=== PATIENT | female | born 1955 | race Caucasian/White ===

== ENCOUNTER 2022-02-04 08:42 | Inpatient (IN) | payer BC ==
[2022-02-04 09:52] LABS: #Basophils 0.1 thou/uL (0.0-0.2); #Eosinphils 0.2 thou/uL (0.0-0.7); #Lymphocytes 1.3 thou/uL (1.20-3.40); #Monocytes 0.4 thou/uL (0.11-0.59); %Eosinophils 3.9 % (0.0-10.0); %Lymphocytes 21.3 % (21.0-51.0); %Monocytes 7.3 % (0.0-10.0); %Neutrophils 66.5 % (42.0-75.0); Hemoglobin 13.9 g/dL (12.0-16.0); Mean Corpuscular HGB CONC 32.2 g/dL (32.0-36.0); Mean Corpuscular Hemoglobin 32.4 pg (27.0-31.0); Mean Platelet Volume 6.8 fL (7.4-10.4); Platelet Count 492 thou/uL (130-400); RBC Distribution Width 13.2 % (11.5-14.5); Red Blood Cell (RBC) Count 4.29 mill/uL (4.20-5.40)
[2022-02-04 10:06] LABS: ALT (SGPT) 14 U/L (8-55); AST (SGOT) 35 U/L (5-34); Albumin 3.3 g/dL (3.4-4.8); Alkaline Phosphatase 186 U/L (40-110); Anion Gap 16 mmol/L (10-20); BUN (Urea Nitrogen) 9 mg/dL (9.8-20.1); Bilirubin, Total 0.3 mg/dL (0.2-1.2); Calc. Creatinine Clearance 0 mL/min (70-130); Calcium 9.4 mg/dL (7.8-10.44); Carbon Dioxide 23 mmol/L (23-31); Chloride 98 mmol/L (98-107); Globulin 4.2 g/dL (2.4-3.5); Glucose 71 mg/dL (80-115); Magnesium 1.9 mg/dL (1.6-2.6); Potassium 3.7 mmol/L (3.5-5.1); Protein, Total 7.5 g/dL (5.8-8.1); Sodium 133 mmol/L (136-145)
[2022-02-04 11:48] LABS: Bilirubin Negative (Negative); Blood, Urine Negative (Negative); Clarity Clear (Clear); Glucose, Urine (Dipstick) Normal (Negative); Ketone, Urine Negative (Negative); Leukocyte Negative Leu/uL (Negative); Nitrite Negative (Negative); Protein, Urine (Dipstick) Negative (Neg-Trace); Specific Gravity, Urine 1.025 (1.002-1.036); Urobilinogen Normal mg/dL (Less than 2); pH, Urine 5.5 (5.0-9.0)
[2022-02-04 12:48] LABS: SARS-CoV-2 NAA Rapid Test Not Detected (NotDetected)
[2022-02-04 13:19] LABS: INR-International Normal Ratio 1.1; PTT 50.1 sec (22.9-36.1); Prothrombin Time 14.6 sec (12.0-14.7)
[2022-02-04 14:47] LABS: Troponin I Less than 0.010 ng/mL (< 0.028)
[2022-02-04] MEDS ORDERED: Ondansetron PF 4 MG/2 ML Vial IVP PRN (15:40)
[2022-02-04] MEDS ORDERED: Acetaminophen 325 MG TAB PO PRN (15:40)
[2022-02-04] MEDS ORDERED: Acetaminophen 650 MG Suppository PR PRN (15:40)
[2022-02-04] MEDS ORDERED: Ondansetron ODT 4 MG TAB PO PRN (15:40)
[2022-02-04 17:14] VITALS: BMI 39.0
[2022-02-04 17:32] LABS: Troponin I Less than 0.010 ng/mL (< 0.028)
[2022-02-04 17:53] LABS: Fluid, pH - Pleural Fld Greater than 7.50 (7.60 - 7.66)
[2022-02-04 18:49] LABS: RBC Count-Automated (BF) 225 /cu.mm; WBC/Nucleated-Auto (BF) 5311 /cu.mm
[2022-02-04 18:58] LABS: Body Fluid Source Thoracentesis Fluid
[2022-02-04 18:59] LABS: BF Color Yellow; Clarity Hazy (Clear); Tube # EDTA
[2022-02-04 19:07] LABS: BF Segmented Neutrophils 26 %; Cell Count Non Hematic 14 %; Eosinophils 1 %; Lymphocytes 59 %
[2022-02-05 04:03] LABS: #Eosinphils 0.2 thou/uL (0.0-0.7); #Lymphocytes 1.3 thou/uL (1.20-3.40); #Monocytes 0.5 thou/uL (0.11-0.59); #Neutrophils 3.6 thou/uL (1.40-6.50); %Basophils 0.6 % (0.0-1.0); %Eosinophils 3.9 % (0.0-10.0); %Lymphocytes 22.4 % (21.0-51.0); %Monocytes 8.2 % (0.0-10.0); %Neutrophils 64.9 % (42.0-75.0); Hemoglobin 13.1 g/dL (12.0-16.0); Mean Corpuscular HGB CONC 31.8 g/dL (32.0-36.0); Mean Corpuscular Hemoglobin 32.2 pg (27.0-31.0); Mean Platelet Volume 6.7 fL (7.4-10.4); Platelet Count 479 thou/uL (130-400); RBC Distribution Width 13.4 % (11.5-14.5); Red Blood Cell (RBC) Count 4.06 mill/uL (4.20-5.40); White Blood Cell (WBC) Count 5.6 thou/uL (4.8-10.8)
[2022-02-05 04:19] LABS: ALT (SGPT) 12 U/L (8-55); AST (SGOT) 29 U/L (5-34); Albumin 2.7 g/dL (3.4-4.8); Alkaline Phosphatase 146 U/L (40-110); Anion Gap 15 mmol/L (10-20); BUN (Urea Nitrogen) 7 mg/dL (9.8-20.1); Bilirubin, Total 0.4 mg/dL (0.2-1.2); Calc. Creatinine Clearance 104 mL/min (70-130); Calcium 8.3 mg/dL (7.8-10.44); Carbon Dioxide 22 mmol/L (23-31); Chloride 99 mmol/L (98-107); Globulin 3.4 g/dL (2.4-3.5); Glucose 73 mg/dL (80-115); Potassium 3.4 mmol/L (3.5-5.1); Protein, Total 6.1 g/dL (5.8-8.1); Sodium 133 mmol/L (136-145)
[2022-02-05 16:07] VITALS: BP 113/69; TEMP 98.4
== END 2022-02-05 16:37 | disposition home or self-care (01) | DRG 181 ==
LOC: ERS 08:42 → 2NO 12:46
PROVIDERS: ADMIT Internal Medicine; ATTEND Internal Medicine
PROC: 0W9B3ZZ Drainage of Left Pleural Cavity, Percutaneous Approach (ICD-10-PCS; principal; 2022-02-04)
DX: C34.02 Malignant neoplasm of left main bronchus (principal); J91.0 Malignant pleural effusion; Z20.822 Contact with and (suspected) exposure to COVID-19; I10 Essential (primary) hypertension; F17.210 Nicotine dependence, cigarettes, uncomplicated; K76.0 Fatty (change of) liver, not elsewhere classified; K80.20 Calculus of gallbladder without cholecystitis without obstruction; Z79.899 Other long term (current) drug therapy; Z90.710 Acquired absence of both cervix and uterus; Z90.09 Acquired absence of other part of head and neck
CPT/HCPCS: 0240U; 36415; 71045; 71260; 74177; 80053; 81003; 82150; 82945; 83615; 83735; 83880; 83986; 84157; 84443; 84478; 84484; 85025; 85060; 85610; 85730; 87045; 87046; 87070; 87116; 87205; 87206; 87324; 87427; 87449; 88112; 88184; 88305; 89051; J1642

== ENCOUNTER 2022-03-14 11:59 | Inpatient (IN) | payer BC ==
[2022-03-14 13:32] LABS: Mean Corpuscular HGB CONC 33.3 g/dL (32.0-36.0); Mean Corpuscular Hemoglobin 32.3 pg (27.0-31.0); Mean Corpuscular Volume 97.1 fL (78.0-98.0); Mean Platelet Volume 9.9 fL (7.4-10.4); Platelet Count 10 thou/uL (130-400); RBC Distribution Width 14.1 % (11.5-14.5); Red Blood Cell (RBC) Count 3.09 mill/uL (4.20-5.40); White Blood Cell (WBC) Count 0.3 thou/uL (4.8-10.8)
[2022-03-14 13:36] LABS: Albumin 3.1 g/dL (3.4-4.8)
[2022-03-14 13:37] LABS: Calcium 7.8 mg/dL (7.8-10.44); Chloride 99 mmol/L (98-107); Potassium 4.2 mmol/L (3.5-5.1); Sodium 130 mmol/L (136-145)
[2022-03-14 13:38] LABS: Globulin 2.6 g/dL (2.4-3.5); Glucose 106 mg/dL (80-115); Protein, Total 5.7 g/dL (5.8-8.1)
[2022-03-14 13:39] LABS: Anion Gap 16 mmol/L (10-20); Carbon Dioxide 19 mmol/L (23-31)
[2022-03-14 13:40] LABS: Bilirubin, Total 0.8 mg/dL (0.2-1.2)
[2022-03-14 13:41] LABS: Alkaline Phosphatase 78 U/L (40-110); Calc. Creatinine Clearance 0 mL/min (70-130)
[2022-03-14 13:42] LABS: BUN (Urea Nitrogen) 14 mg/dL (9.8-20.1)
[2022-03-14 13:43] LABS: AST (SGOT) 24 U/L (5-34)
[2022-03-14 13:44] LABS: ALT (SGPT) 13 U/L (8-55)
[2022-03-14 13:48] LABS: MDiff Complete? YES; Platelet Morphology Comment Appears Decreased; Polychromasia SLIGHT = 2-3 cells (100X) (0-2/hpf)
[2022-03-14] MEDS ORDERED: Ondansetron PF 4 MG/2 ML Vial ONE ×2 (13:54→16:11)
[2022-03-14] MEDS ORDERED: Cefepime 2 GM VIAL ONE (13:54)
[2022-03-14 14:06] LABS: CKMB 0.2 ng/mL (0-6.6)
[2022-03-14] MEDS ORDERED: Iopamidol-370 76% 500 ML 1 ML ONE (14:40)
[2022-03-14] MEDS ORDERED: Vancomycin 1.5 GRAM/300 ML BAG 1.5 GM in Premix Bag 1 BAG IVPB SCH (15:00)
[2022-03-14] MEDS ORDERED: Metoprolol Tartrate 5 MG/5 ML VIAL ONE (15:23)
[2022-03-14] MEDS ORDERED: Bisacodyl 5 MG TAB PO PRN (15:35)
[2022-03-14] MEDS ORDERED: Senokot S 8.6-50 MG TAB PO PRN (15:35)
[2022-03-14] MEDS ORDERED: Acetaminophen 325 MG TAB PO PRN (15:35)
[2022-03-14] MEDS ORDERED: Acetaminophen 500 MG TAB ONE (16:26)
[2022-03-14] MEDS: Sodium Chloride 0.9% 1,000 ML IV SCH (18:00)
[2022-03-14 18:01] VITALS: BMI 36.8
[2022-03-14] MEDS ORDERED: Ondansetron PF 4 MG/2 ML Vial IVP PRN (18:12)
[2022-03-14 18:30] LABS: Mean Corpuscular HGB CONC 33.5 g/dL (32.0-36.0); Mean Corpuscular Hemoglobin 33.2 pg (27.0-31.0); Mean Corpuscular Volume 99.3 fL (78.0-98.0); Platelet Count 4 thou/uL (130-400); RBC Distribution Width 14.2 % (11.5-14.5); Red Blood Cell (RBC) Count 2.41 mill/uL (4.20-5.40); White Blood Cell (WBC) Count 0.1 thou/uL (4.8-10.8)
[2022-03-14] MEDS ORDERED: Norepinephrine 8 MG/0.9% NS 250 ML IVPB SCH (19:00)
[2022-03-14] MEDS ORDERED: VANCOMYCIN 1.25 GM/250 ML BAG 1.25 GM in Premix Bag 1 BAG IVPB SCH (21:00)
[2022-03-14] MEDS: Cefepime 2 GM in Sodium Chloride 0.9% 100 ML IVPB SCH (21:33)
[2022-03-14] MEDS: Famotidine/PF 20 mg/2ml Vial SLOW IVP SCH (21:34)
[2022-03-14 23:55] LABS: Bacteria/HPF None Seen HPF (None Seen); Bilirubin Negative (Negative); Blood, Urine Negative (Negative); Clarity Clear (Clear); Glucose, Urine (Dipstick) Normal (Negative); Ketone, Urine Negative (Negative); Leukocyte Negative Leu/uL (Negative); Nitrite Negative (Negative); Protein, Urine (Dipstick) Negative (Neg-Trace); RBC/HPF 0-3 HPF (0-3); Specific Gravity, Urine 1.017 (1.002-1.036); Squamous Epithelial 0-3 HPF (0-3); Urobilinogen Normal mg/dL (Less than 2); WBC/HPF 0-3 HPF (0-3); pH, Urine 5.5 (5.0-9.0)
[2022-03-15 00:13] LABS: Hemoglobin 7.4 g/dL (12.0-16.0); Mean Corpuscular HGB CONC 33.8 g/dL (32.0-36.0); Mean Corpuscular Volume 97.7 fL (78.0-98.0); Mean Platelet Volume 6.5 fL (7.4-10.4); Platelet Count 49 thou/uL (130-400); RBC Distribution Width 13.9 % (11.5-14.5); Red Blood Cell (RBC) Count 2.24 mill/uL (4.20-5.40); White Blood Cell (WBC) Count 0.1 thou/uL (4.8-10.8)
[2022-03-15 00:45] LABS: Legionella Urinary Ag Negative (Negative); Strep pneumo Urine Ag NEGATIVE (NEGATIVE)
[2022-03-15] MEDS: HYDROcodone/Acetaminophen 5/325 mg Tablet PO PRN ×3 (04:13→19:39)
[2022-03-15] MEDS: Sodium Chloride 0.9% 1,000 ML IV SCH ×2 (04:45→16:40)
[2022-03-15 04:46] LABS: Anion Gap 14 mmol/L (10-20); BUN (Urea Nitrogen) 15 mg/dL (9.8-20.1); Calc. Creatinine Clearance 103 mL/min (70-130); Carbon Dioxide 21 mmol/L (23-31); Chloride 106 mmol/L (98-107); Glucose 87 mg/dL (80-115); Potassium 3.7 mmol/L (3.5-5.1); Sodium 137 mmol/L (136-145)
[2022-03-15 05:00] LABS: Hemoglobin 7.3 g/dL (12.0-16.0); Mean Corpuscular HGB CONC 33.3 g/dL (32.0-36.0); Mean Corpuscular Hemoglobin 32.4 pg (27.0-31.0); Mean Corpuscular Volume 97.3 fL (78.0-98.0); Platelet Count 44 thou/uL (130-400); Red Blood Cell (RBC) Count 2.25 mill/uL (4.20-5.40); White Blood Cell (WBC) Count 0.1 thou/uL (4.8-10.8)
[2022-03-15] MEDS: Cefepime 2 GM in Sodium Chloride 0.9% 100 ML IVPB SCH ×3 (05:27→21:08)
[2022-03-15] MEDS: Levothyroxine Sodium 25 MCG TAB PO SCH (05:28)
[2022-03-15] MEDS: Vancomycin HCl 1.5 GM in Sodium Chloride 0.9% 250 ML 300 ML IVPB SCH ×2 (05:40→17:21)
[2022-03-15] MEDS: Famotidine/PF 20 mg/2ml Vial SLOW IVP SCH ×2 (09:07→20:02)
[2022-03-15 12:27] LABS: SARS-CoV-2 PCR by NAA Not Detected (NotDetected)
[2022-03-15 13:00] LABS: Mean Corpuscular HGB CONC 33.2 g/dL (32.0-36.0); Mean Corpuscular Hemoglobin 32.4 pg (27.0-31.0); Mean Corpuscular Volume 97.5 fL (78.0-98.0); Mean Platelet Volume 7.2 fL (7.4-10.4); Platelet Count 29 thou/uL (130-400); Red Blood Cell (RBC) Count 2.15 mill/uL (4.20-5.40); White Blood Cell (WBC) Count 0.2 thou/uL (4.8-10.8)
[2022-03-15] MEDS: TBO-Filgrastim 300 MCG/0.5 ML VIAL SC SCH (16:54)
[2022-03-15] MEDS: metroNIDAZOLE 500 MG in Premix Bag 1 BAG IVPB SCH (16:55)
[2022-03-15] MEDS ORDERED: Electrolyte Replacement Protocol 1 EACH FS PRN (21:00)
[2022-03-15] MEDS: NS 0.9% w/ 20 MEQ KCL 1,000 ML/1,000 ML BAG IV SCH (21:16)
[2022-03-15] MEDS: Folic Acid 1 MG TAB PO SCH (21:16)
[2022-03-15] MEDS: ALPRAZolam 0.5 MG TAB PO PRN (21:25)
[2022-03-16] MEDS: metroNIDAZOLE 500 MG in Premix Bag 1 BAG IVPB SCH ×3 (00:44→17:37)
[2022-03-16] MEDS: HYDROcodone/Acetaminophen 5/325 mg Tablet PO PRN ×3 (02:48→12:58)
[2022-03-16 05:21] LABS: ALT (SGPT) 13 U/L (8-55); AST (SGOT) 24 U/L (5-34); Albumin 2.6 g/dL (3.4-4.8); Alkaline Phosphatase 63 U/L (40-110); Anion Gap 13 mmol/L (10-20); BUN (Urea Nitrogen) 14 mg/dL (9.8-20.1); Bilirubin, Total 0.3 mg/dL (0.2-1.2); Calc. Creatinine Clearance 120 mL/min (70-130); Calcium 7.6 mg/dL (7.8-10.44); Carbon Dioxide 19 mmol/L (23-31); Chloride 113 mmol/L (98-107); Globulin 2.9 g/dL (2.4-3.5); Glucose 62 mg/dL (80-115); Magnesium 1.8 mg/dL (1.6-2.6); Phosphorus 2.2 mg/dL (2.3-4.7); Potassium 3.5 mmol/L (3.5-5.1); Protein, Total 5.5 g/dL (5.8-8.1); Sodium 141 mmol/L (136-145)
[2022-03-16 05:23] LABS: Hemoglobin 6.8 g/dL (12.0-16.0); Mean Corpuscular HGB CONC 33.2 g/dL (32.0-36.0); Mean Corpuscular Hemoglobin 32.8 pg (27.0-31.0); Mean Corpuscular Volume 98.6 fL (78.0-98.0); Mean Platelet Volume 7.7 fL (7.4-10.4); Platelet Count 30 thou/uL (130-400); RBC Distribution Width 14.1 % (11.5-14.5); Red Blood Cell (RBC) Count 2.08 mill/uL (4.20-5.40); White Blood Cell (WBC) Count 0.3 thou/uL (4.8-10.8)
[2022-03-16 05:33] LABS: CRP (Inflammatory) 35.28 mg/dL (= or < 0.5)
[2022-03-16 05:42] LABS: MDiff Complete? YES; Platelet Morphology Comment Appears Decreased; Rouleaux Formation SLIGHT = 1-5 cells (100X) (None Seen)
[2022-03-16 05:47] LABS: Vancomycin, Trough 29.3 ug/mL
[2022-03-16] MEDS: Cefepime 2 GM in Sodium Chloride 0.9% 100 ML IVPB SCH ×3 (06:10→21:22)
[2022-03-16] MEDS: Levothyroxine Sodium 25 MCG TAB PO SCH (06:10)
[2022-03-16] MEDS: Vancomycin HCl 1.5 GM in Sodium Chloride 0.9% 250 ML 300 ML IVPB SCH (06:10)
[2022-03-16] MEDS: Potassium Chloride 20 MEQ in Premix Bag 1 BAG IVPB SCH ×2 (06:55→10:42)
[2022-03-16] MEDS ORDERED: Vancomycin HCl 1.5 GM in Sodium Chloride 0.9% 250 ML 300 ML IVPB SCH (07:15)
[2022-03-16] MEDS: Folic Acid 1 MG TAB PO SCH ×2 (07:44→21:22)
[2022-03-16] MEDS: Famotidine/PF 20 mg/2ml Vial SLOW IVP SCH (07:44)
[2022-03-16] MEDS: ALPRAZolam 0.5 MG TAB PO PRN ×3 (07:44→21:22)
[2022-03-16] MEDS: NS 0.9% w/ 20 MEQ KCL 1,000 ML/1,000 ML BAG IV SCH ×2 (10:42→21:56)
[2022-03-16] MEDS: TBO-Filgrastim 300 MCG/0.5 ML VIAL SC SCH (17:36)
[2022-03-16] MEDS: Famotidine 20 MG TAB PO SCH (21:22)
[2022-03-17] MEDS: metroNIDAZOLE 500 MG in Premix Bag 1 BAG IVPB SCH (01:56)
[2022-03-17] MEDS ORDERED: metroNIDAZOLE 500 MG TAB PO SCH ×3 (02:00→21:00)
[2022-03-17] MEDS: Cefepime 2 GM in Sodium Chloride 0.9% 100 ML IVPB SCH (05:33)
[2022-03-17] MEDS: Levothyroxine Sodium 25 MCG TAB PO SCH (05:34)
[2022-03-17 07:12] LABS: Hemoglobin 9.1 g/dL (12.0-16.0); Mean Corpuscular Hemoglobin 32.6 pg (27.0-31.0); Mean Corpuscular Volume 95.8 fL (78.0-98.0); Mean Platelet Volume 8.3 fL (7.4-10.4); Platelet Count 25 thou/uL (130-400); RBC Distribution Width 14.5 % (11.5-14.5); White Blood Cell (WBC) Count 0.8 thou/uL (4.8-10.8)
[2022-03-17 07:24] LABS: Phosphorus 1.7 mg/dL (2.3-4.7)
[2022-03-17 07:28] LABS: ALT (SGPT) 14 U/L (8-55); AST (SGOT) 23 U/L (5-34); Albumin 2.7 g/dL (3.4-4.8); Alkaline Phosphatase 71 U/L (40-110); Anion Gap 11 mmol/L (10-20); BUN (Urea Nitrogen) 9 mg/dL (9.8-20.1); Bilirubin, Total 0.3 mg/dL (0.2-1.2); Calc. Creatinine Clearance 126 mL/min (70-130); Calcium 7.6 mg/dL (7.8-10.44); Carbon Dioxide 20 mmol/L (23-31); Chloride 110 mmol/L (98-107); Glucose 72 mg/dL (80-115); Magnesium 1.4 mg/dL (1.6-2.6); Potassium 3.3 mmol/L (3.5-5.1); Protein, Total 5.7 g/dL (5.8-8.1); Sodium 138 mmol/L (136-145)
[2022-03-17] MEDS ORDERED: Magnesium Sulfate 4 GM in Sodium Chloride 0.9% 250 ML 250 ML IVPB SCH (07:45)
[2022-03-17] MEDS: HYDROcodone/Acetaminophen 5/325 mg Tablet PO PRN (08:32)
[2022-03-17] MEDS: Folic Acid 1 MG TAB PO SCH (08:33)
[2022-03-17] MEDS ORDERED: Magnesium Sulfate In Water 4 GM in Premix Bag 1 BAG IVPB SCH (09:00)
[2022-03-17] MEDS: Famotidine 20 MG TAB PO SCH (09:38)
[2022-03-17 09:48] VITALS: BP 134/82; TEMP 97.8
[2022-03-17 10:18] LABS: Band 10 % (5-11); Lymphocytes 65 % (21-51); MDiff Complete? YES; Monocytes 15 % (0-10); Neutrophil 10 % (42-75); Platelet Morphology Comment Appears Decreased; Polychromasia SLIGHT = 2-3 cells (100X) (0-2/hpf)
[2022-03-17] MEDS: NS 0.9% w/ 20 MEQ KCL 1,000 ML/1,000 ML BAG IV SCH (13:12)
== END 2022-03-17 15:52 | disposition home or self-care (01) | DRG 871 ==
LOC: ERS 11:59 → IMCU/EMU 15:35 → CCU 20:09 → MSONC 03-16 11:54
PROVIDERS: ADMIT Internal Medicine; ATTEND Internal Medicine
PROC: 3E03329 Introduction of Other Anti-infective into Peripheral Vein, Percutaneous Approach (ICD-10-PCS; principal; 2022-03-14)
PROC: 3E033XZ Introduction of Vasopressor into Peripheral Vein, Percutaneous Approach (ICD-10-PCS; 2022-03-14)
PROC: 6A550Z2 Pheresis of Platelets, Single (ICD-10-PCS; 2022-03-14)
PROC: 30233N1 Transfusion of Nonautologous Red Blood Cells into Peripheral Vein, Percutaneous Approach (ICD-10-PCS; 2022-03-16)
DX: A41.4 Sepsis due to anaerobes (principal); D61.810 Antineoplastic chemotherapy induced pancytopenia; R65.21 Severe sepsis with septic shock; J96.01 Acute respiratory failure with hypoxia; K57.32 Diverticulitis of large intestine without perforation or abscess without bleeding; E87.1 Hypo-osmolality and hyponatremia; C34.92 Malignant neoplasm of unspecified part of left bronchus or lung; C79.31 Secondary malignant neoplasm of brain; E87.6 Hypokalemia; E83.39 Other disorders of phosphorus metabolism; E83.42 Hypomagnesemia; F41.9 Anxiety disorder, unspecified; E03.9 Hypothyroidism, unspecified; G47.33 Obstructive sleep apnea (adult) (pediatric); T45.1X5A Adverse effect of antineoplastic and immunosuppressive drugs, initial encounter; Z88.0 Allergy status to penicillin; Z90.710 Acquired absence of both cervix and uterus; Z79.899 Other long term (current) drug therapy; Z79.890 Hormone replacement therapy
CPT/HCPCS: 36415; 36416; 36430; 71045; 71275; 74176; 80048; 80053; 80202; 81001; 82553; 83605; 83690; 83735; 83880; 84100; 84145; 84484; 85025; 86140; 86850; 86900; 86901; 87040; 87077; 87149; 87186; 87449; 87899; 93005; 93970; J0692; J1447; J2405; J3370; J3475; J3480; J3490; J7030; J7050; P9016; P9035; Q9967; S0028; U0003; U0005

== ENCOUNTER 2023-04-06 12:53 | Inpatient (IN) | payer BC, MEDICARE, OTHER ==
[2023-04-06 15:09] LABS: Hemoglobin 8.6 g/dL (12.0-16.0); Mean Corpuscular HGB CONC 29.8 g/dL (32.0-36.0); Mean Corpuscular Hemoglobin 32.5 pg (27.0-31.0); Mean Corpuscular Volume 109.1 fl (78.0-98.0); RBC Distribution Width 17.3 % (11.5-14.5); Red Blood Cell (RBC) Count 2.65 mill/uL (4.20-5.40); White Blood Cell (WBC) Count 1.6 10x3/uL (4.8-10.8)
[2023-04-06 15:12] LABS: Platelet Count 25 10x3/uL (130-400)
[2023-04-06 15:13] LABS: Manual Diff?? YES
[2023-04-06 15:15] LABS: Delete Auto Diff?? YES
[2023-04-06 15:26] LABS: ALT (SGPT) 14 U/L (8-55); AST (SGOT) 18 U/L (5-34); Albumin 3.4 g/dL (3.4-4.8); Alkaline Phosphatase 67 U/L (40-110); Anion Gap 21 mmol/L (10-20); BUN (Urea Nitrogen) 83 mg/dL (9.8-20.1); Bilirubin, Total 0.4 mg/dL (0.2-1.2); Calc. Creatinine Clearance 0 mL/min (70-130); Calcium 8.7 mg/dL (7.8-10.44); Carbon Dioxide 16 mmol/L (23-31); Chloride 102 mmol/L (98-107); Estimated GFR 23; Globulin 3.5 g/dL (2.4-3.5); Glucose 102 mg/dL (80-115); Potassium 5.4 mmol/L (3.5-5.1); Protein, Total 6.9 g/dL (5.8-8.1); Sodium 134 mmol/L (136-145)
[2023-04-06 15:35] LABS: Anisocytosis SLIGHT = 6-15 cells HPF (0-5); Band 2 % (5-11); CellaVision Operator ID LAB.MJL; Lymphocytes 20 % (21-51); Macrocytosis SLIGHT = 6-15 cells HPF (0-5); Monocytes 5 % (0-10); Neutrophil 73 % (42-75); Nucleated RBC (Manual Ct) 2 % (0); Ovalocytes SLIGHT = 2-5 cells HPF (0-1); Platelet Morphology Comment Significant decrease; Polychromasia SLIGHT = 2-3 cells HPF (0-2); Tear Drops SLIGHT = 2-5 cells HPF (0-1); Total Cell Count 100
[2023-04-06] MEDS ORDERED: Ondansetron PF 4 MG/2 ML Vial ONE ×2 (17:30→18:48)
[2023-04-06] MEDS ORDERED: fentaNYL 50 mcg/mL 1 mL Vial ONE (18:33)
[2023-04-06 18:47] LABS: Troponin I Less than 0.010 ng/mL (< 0.028)
[2023-04-06] MEDS ORDERED: Ondansetron ODT 4 MG TAB PO PRN (21:19)
[2023-04-06 21:30] LABS: Troponin I Less than 0.010 ng/mL (< 0.028)
[2023-04-06 22:13] VITALS: BMI 28.8
[2023-04-07] MEDS: Acetaminophen 325 MG TAB PO PRN ×2 (00:50→08:23)
[2023-04-07] MEDS: Ondansetron PF 4 MG/2 ML Vial IVP PRN ×2 (00:50→08:22)
[2023-04-07 04:17] LABS: #Monocytes 0.1 thou/uL (0.11-0.59); #Neutrophils 0.6 thou/uL (1.40-6.50); %Lymphocytes 34.3 % (21.0-51.0); %Monocytes 10.4 % (0.0-10.0); %Neutrophils 47.8 % (42.0-75.0); Hemoglobin 8.2 g/dL (12.0-16.0); Mean Corpuscular HGB CONC 29.3 g/dL (32.0-36.0); Mean Corpuscular Hemoglobin 31.7 pg (27.0-31.0); Mean Corpuscular Volume 108.1 fl (78.0-98.0); RBC Distribution Width 17.1 % (11.5-14.5); Red Blood Cell (RBC) Count 2.59 mill/uL (4.20-5.40); White Blood Cell (WBC) Count 1.3 10x3/uL (4.8-10.8)
[2023-04-07 04:35] LABS: Platelet Count 29 10x3/uL (130-400)
[2023-04-07 04:43] LABS: ALT (SGPT) 20 U/L (8-55); AST (SGOT) 28 U/L (5-34); Albumin 3.3 g/dL (3.4-4.8); Alkaline Phosphatase 65 U/L (40-110); Anion Gap 22 mmol/L (10-20); BUN (Urea Nitrogen) 87 mg/dL (9.8-20.1); Bilirubin, Total 0.4 mg/dL (0.2-1.2); Calc. Creatinine Clearance 25 mL/min (70-130); Calcium 8.6 mg/dL (7.8-10.44); Carbon Dioxide 17 mmol/L (23-31); Chloride 102 mmol/L (98-107); Estimated GFR 19; Globulin 3.4 g/dL (2.4-3.5); Glucose 94 mg/dL (80-115); Protein, Total 6.7 g/dL (5.8-8.1); Sodium 135 mmol/L (136-145)
[2023-04-07] MEDS ORDERED: LOKELMA 10 GM PACKET PO SCH ×2 (08:00→13:00)
[2023-04-07] MEDS ORDERED: Sodium Chloride 0.9% 1,000 ML IV SCH (08:30)
[2023-04-07] MEDS ORDERED: Sodium Chloride 0.9% 500 ML IV SCH (08:45)
[2023-04-07] MEDS ORDERED: Famotidine/PF 20 mg/2ml Vial SLOW IVP SCH ×2 (09:00→21:00)
[2023-04-07 11:54] VITALS: TEMP 97.3
[2023-04-07 12:27] LABS: Anion Gap 30 mmol/L (10-20); BUN (Urea Nitrogen) 91 mg/dL (9.8-20.1); Calc. Creatinine Clearance 24 mL/min (70-130); Calcium 8.4 mg/dL (7.8-10.44); Chloride 103 mmol/L (98-107); Estimated GFR 18; Glucose 80 mg/dL (80-115); Sodium 135 mmol/L (136-145)
[2023-04-07 12:33] LABS: Carbon Dioxide 8 mmol/L (23-31); Potassium 6.3 mmol/L (3.5-5.1)
[2023-04-07 13:17] LABS: Magnesium 2.5 mg/dL (1.6-2.6); Phosphorus 6.4 mg/dL (2.3-4.7); Uric Acid 14.3 mg/dL (2.6-6.0)
[2023-04-07] MEDS ORDERED: Lactated Ringer's 1,000 ML IV SCH (13:45)
[2023-04-07 13:53] VITALS: BP 128/67
[2023-04-07] MEDS ORDERED: Sodium Bicarb 50 MEQ/50 ML VIAL IVP SCH ×2 (14:00→14:45)
[2023-04-07] MEDS ORDERED: Sodium Bicarbonate 150 MEQ in Dextrose 5% in Water 1,000 ML IV SCH (14:15)
[2023-04-07] MEDS ORDERED: NOREPINEPHRINE 8 MG/250 ML-D5W 250 ML ONE (14:36)
[2023-04-07] MEDS ORDERED: Vasopressin 20 UNITS in Sodium Chloride 0.9% 50 ML IV PRN (14:45)
[2023-04-07] MEDS ORDERED: NOREPINEPHRINE 8 MG/250 ML-D5W 250 ML IVPB PRN (14:45)
[2023-04-07] MEDS ORDERED: Ventilator Sedation Protocol 1 EACH FS SCH (14:45)
[2023-04-07] MEDS ORDERED: Electrolyte Replacement Protocol 1 EACH IVPB ONE (14:45)
[2023-04-07 15:13] LABS: Base Excess (BEa) -20.5 mEq/L (-2.0 to +3.0); Calcium, Ionized (arterial) 1.02 mmol/L (1.12-1.30); Carboxyhemoglobin (COHb) 0.3 gm% (0.0-3.0); Hematocrit-ABG 28 % (36.0-47.0); Hemoglobin (Hb) 9.4 g/dL (12.0-16.0); O2 Tension (PaO2), arterial 491.9 mmHg (> 80.0)
[2023-04-07] MEDS ORDERED: Lorazepam 2 MG/ML VIAL SLOW IVP PRN ×2 (15:15→16:35)
[2023-04-07] MEDS ORDERED: Propofol BOLUS 1,000 MG/100 ML VIAL IV PRN (15:15)
[2023-04-07] MEDS ORDERED: Propofol 1,000 MG/100 ML VIAL IV PRN (15:15)
[2023-04-07] MEDS ORDERED: Fentanyl CADD 100 ML IV SCH (15:15)
[2023-04-07] MEDS ORDERED: DISCONTINUE PREVIOUS NARCOTIC PAIN MEDICATIONS AND BENZODIAZEPINES FS SCH (15:15)
[2023-04-07] MEDS ORDERED: Morphine 2 MG/ML VIAL SLOW IVP PRN ×2 (15:15→16:35)
[2023-04-07] MEDS ORDERED: Fentanyl BOLUS 250 ML IVPB PRN (15:15)
[2023-04-07 15:17] LABS: Actual Bicarbonate (HCO3a) 7.2 mEq/L (22-28); Potassium - ABG Lab 6.21 mmol/L (3.70-5.30); Puncture Site RRA; pH, Arterial 7.115 (7.35-7.45)
[2023-04-07 15:39] LABS: Lactic Acid 16.4 mmol/L (0.5-2.2)
[2023-04-07 15:41] LABS: Hemoglobin 8.2 g/dL (12.0-16.0); Mean Corpuscular HGB CONC 28.9 g/dL (32.0-36.0); Mean Corpuscular Hemoglobin 33.9 pg (27.0-31.0); Mean Platelet Volume 13.3 fL (7.4-10.4); RBC Distribution Width 17.7 % (11.5-14.5); Red Blood Cell (RBC) Count 2.42 mill/uL (4.20-5.40)
[2023-04-07 15:46] LABS: Delete Auto Diff?? YES; Mean Corpuscular Volume 117.4 fl (78.0-98.0)
[2023-04-07 15:47] LABS: Manual Diff?? YES; Platelet Count 17 10x3/uL (130-400)
[2023-04-07 15:52] LABS: Actual Bicarbonate (HCO3a) 3.7 mEq/L (22-28); CO2 Tension 12.4 mmHg (35.0-45.0)
[2023-04-07 15:53] LABS: Calcium, Ionized (arterial) 1.05 mmol/L (1.12-1.30); Carboxyhemoglobin (COHb) 0.3 gm% (0.0-3.0); Hematocrit-ABG 29 % (36.0-47.0); Potassium - ABG Lab 6.45 mmol/L (3.70-5.30); Puncture Site RRA
[2023-04-07 16:02] LABS: PTT 31.2 sec (22.9-36.1); Prothrombin Time 23.6 sec (12.0-14.7)
[2023-04-07 16:27] LABS: Anisocytosis SLIGHT = 6-15 cells HPF (0-5); Band 3 % (5-11); Burr Cells MODERATE= 6-15 cells HPF (0-1); CellaVision Operator ID LAB.KB; Hypochromia SLIGHT = 6-15 cells HPF (0-5); Lymphocytes 28 % (21-51); Macrocytosis MODERATE=16-30 cells HPF (0-5); Monocytes 5 % (0-10); Neutrophil 55 % (42-75); Nucleated RBC (Manual Ct) 8 % (0); Platelet Morphology Comment Platelets Decreased; Polychromasia SLIGHT = 2-3 cells HPF (0-2); Reactive Lymphocytes 9 % (0-10); Total Cell Count 100
[2023-04-07 16:28] LABS: Anion Gap 36 mmol/L (10-20); BUN (Urea Nitrogen) 87 mg/dL (9.8-20.1); Calc. Creatinine Clearance 22 mL/min (70-130); Calcium 8.2 mg/dL (7.8-10.44); Chloride 102 mmol/L (98-107); Estimated GFR 16; Glucose 68 mg/dL (80-115); Sodium 139 mmol/L (136-145)
[2023-04-07 16:41] LABS: Carbon Dioxide 8 mmol/L (23-31); Potassium 6.6 mmol/L (3.5-5.1)
[2023-04-07] MEDS ORDERED: Scopolamine 1.5 mg/72 hour Patch TD SCH (17:00)
[2023-04-07] MEDS ORDERED: Hydrocortisone Sod Succ/PF 100 mg/2 ml Vial IVP SCH (17:00)
== END 2023-04-07 17:42 | disposition expired | DRG 208 ==
LOC: ERS 12:53 → 2NO 17:27 → CCU 04-07 14:36
PROVIDERS: ADMIT Family Medicine; ATTEND Family Medicine
PROC: 5A1935Z Respiratory Ventilation, Less than 24 Consecutive Hours (ICD-10-PCS; principal; 2023-04-07)
PROC: 0BH17EZ Insertion of Endotracheal Airway into Trachea, Via Natural or Artificial Opening (ICD-10-PCS; 2023-04-07)
PROC: 06HY33Z Insertion of Infusion Device into Lower Vein, Percutaneous Approach (ICD-10-PCS; 2023-04-07)
PROC: 0T9B70Z Drainage of Bladder with Drainage Device, Via Natural or Artificial Opening (ICD-10-PCS; 2023-04-07)
PROC: 3E043XZ Introduction of Vasopressor into Central Vein, Percutaneous Approach (ICD-10-PCS; 2023-04-07)
PROC: 4A133R1 Monitoring of Arterial Saturation, Peripheral, Percutaneous Approach (ICD-10-PCS; 2023-04-07)
PROC: 6A550Z2 Pheresis of Platelets, Single (ICD-10-PCS; 2023-04-07)
DX: C34.90 Malignant neoplasm of unspecified part of unspecified bronchus or lung (principal); E88.3 Tumor lysis syndrome; G93.41 Metabolic encephalopathy; J96.01 Acute respiratory failure with hypoxia; Z51.5 Encounter for palliative care; N17.9 Acute kidney failure, unspecified; J91.0 Malignant pleural effusion; D61.818 Other pancytopenia; E87.20 Acidosis, unspecified; E87.3 Alkalosis; N18.4 Chronic kidney disease, stage 4 (severe); C79.31 Secondary malignant neoplasm of brain; E66.9 Obesity, unspecified; E87.5 Hyperkalemia; E03.9 Hypothyroidism, unspecified; G47.33 Obstructive sleep apnea (adult) (pediatric); E79.0 Hyperuricemia without signs of inflammatory arthritis and tophaceous disease; E83.39 Other disorders of phosphorus metabolism; I12.9 Hypertensive chronic kidney disease with stage 1 through stage 4 chronic kidney disease, or unspecified chronic kidney disease; I46.9 Cardiac arrest, cause unspecified; Z90.710 Acquired absence of both cervix and uterus; Z88.0 Allergy status to penicillin; Z79.899 Other long term (current) drug therapy; Z98.890 Other specified postprocedural states; Z68.28 Body mass index [BMI] 28.0-28.9, adult
CPT/HCPCS: 36415; 36430; 36600; 71045; 80053; 82550; 82805; 83605; 83735; 84100; 84443; 84484; 84550; 85025; 85610; 85730; 86850; 86900; 86901; 93005; 93010; 94002; 94640; 96374; 96375; J1650; J2405; J3010; J7030; J7050; J7611; P9035; S0028